=== PATIENT | female | born 1930 | race Caucasian/White ===

== ENCOUNTER → 2016-06-27 | Outpatient (CLI) | payer MEDICARE, OTHER ==
[~2016-06-27] MED LIST: ALPHAGAN OPHTH; LOPRESSOR25 MG PO; SOTALOL80 MG PO; TRUSOPT 2% OPTH10 ML OPHTH; XALATAN2.5 ML OPHTH; XARELTO15 MG PO
[2016-06-27 13:46] LABS: ALBUMIN 3.9 gm/dL (3.5-5.0); ANION GAP 11.6 (10.0-19.0); BLOOD UREA NITROGEN 17 mg/dL (6-24); CALCIUM 9.2 mg/dL (8.5-10.5); CHLORIDE 101 mMol/L (96-110); CO2 30 mMol/L (22-32); CREATININE 0.7 mg/dL (0.5-1.1); ESTIMATED GFR (MDRD EQUATION) > 60; POTASSIUM 3.6 mMol/L (3.7-5.1); SODIUM 139 mMol/L (135-145)
== END | disposition disaster alternative care site (69) ==
LOC: LCNC 13:18
PROVIDERS: Internal Medicine Interventional Cardiology
DX: I48.91 Unspecified atrial fibrillation (principal)

== ENCOUNTER → 2016-08-01 | Day surgery (SDC) | payer MEDICARE, OTHER ==
[~2016-08-01] VITALS: Ht 162.6 cm; Wt 55.3 kg
--- NOTE | ~2016-08-01 | OR ---
PATIENT'S NAME: [facility] AGE: 85 Y [address] ROOM: [place] [id number] LOCATION: [facility] [place] ADMIT DATE: 08/01/2016 OR/Procedure Report DISCHARGE DATE: FAMILY PHYSICIAN: CLIFTON MOTTA MD ATTENDING PHYSICIAN: Terry Santiago SURGEON: Terry Santiago MD [employer] SUPERVISOR: DATE OF PROCEDURE: 08/01/2016 INDICATIONS: Atrial fibrillation refractory to antiarrhythmic drug therapy. PROCEDURE PERFORMED: DC cardioversion. COMPLICATIONS: None. DESCRIPTION OF PROCEDURE: Ms. Lugo was brought to the preoperative room in the fasting state. Prepped and draped in normal manner. 80 mg of propofol was administered through the nurse grant manager. Once adequate levels of sedation were obtained, 200 joules followed by 300 joules and ultimately 360 joules was delivered with persistence of atrial fibrillation. CONCLUSION: 1. Unsuccessful cardioversion for refractory atrial fibrillation. 2. The patient will continue long-term anticoagulation and will discontinue antiarrhythmic drug therapy. 3. The patient will follow up with me in the office in 2 weeks. I would like to thank Dr. Motta for the opportunity to participate in the care of Mrs. Lugo. TERRY SANTIAGO MD DJM/modl /[id number] CC: Clifton Motta MD d: 08/07/16 0934 t: 08/15/16 0817, OPERATIVE SUMMARY
== END | disposition disaster alternative care site (69) ==
LOC: GPOC 07-31 16:00 → GSDC 08:28 → GPOC 16:00
PROC: 5A2204Z Restoration of Cardiac Rhythm, Single (ICD-10-PCS; principal; 2016-08-01)
DX: I48.1 Persistent atrial fibrillation (principal); I10 Essential (primary) hypertension; Z90.710 Acquired absence of both cervix and uterus; Z98.890 Other specified postprocedural states; Z79.01 Long term (current) use of anticoagulants; Z79.899 Other long term (current) drug therapy
CPT/HCPCS: J2001; J7030